=== PATIENT | female | born 1960 | race Two or more races ===

== ENCOUNTER 2017-04-15 19:12 | Emergency (ER) | payer BC ==
[~2017-04-15] VITALS: Ht 162.6 cm; Wt 68.0 kg
--- NOTE | ~2017-04-15 | CR20 ---
[facility] A Service of [facility] & [facility] RADIOLOGY TEXT RESULTS PATIENT: KILLIAN HELMS LOCATION: SED : 58 UNIT #: [id number] AGE: [address]: INDRA TAN SEX: F ORDER DR: [id number] [address] [address] [id number] E MR#: [id number] Acc #: [id number] NAME: KILLIAN HELMS : 1960 SEX: F STUDY DATE/TIME: 04/15/2017 20:07 UNIT: SED ROOM: STUDY DESCRIPTION: CR Ankle Min 3 Views Lt Attending Physician: Indra Tan Ordering Physician: Franck Gautam M.D. Primary Care Physician: Primary Care Physician No MEDICAL IMAGING REPORT This report is preliminary unless electronic signature is present. EXAM Left ankle INDICATION Left ankle pain status post trauma. Rolled the ankle. FINDINGS Three views of the left ankle without comparison. There is lateral soft tissue swelling. There is a nondisplaced vertical fracture through the calcaneus. This extends into the subtalar joint. IMPRESSION Nondisplaced fracture through the calcaneus. Dictated by... Chase Hartley M.D. THIS IS AN ELECTRONICALLY VERIFIED REPORT Chase Hartley M.D. at 04/16/2017 8:56 AM Jorge TD: 04/16/2017 08:19 JOB #: [id number] MEDICAL IMAGING REPORT Page 1 of 1
--- NOTE | ~2017-04-15 | CR126 ---
[facility] A Service of [facility] & [facility] RADIOLOGY TEXT RESULTS PATIENT: KILLIAN HELMS LOCATION: SED : 58 UNIT #: [id number] AGE: [address]: INDRA TAN SEX: F ORDER DR: [id number] [address] [address] [id number] E MR#: [id number] Acc #: [id number] NAME: KILLIAN HELMS : 1960 SEX: F STUDY DATE/TIME: 04/15/2017 20:07 UNIT: SED ROOM: STUDY DESCRIPTION: CR Foot Complete Min 3 View Lt Attending Physician: Indra Tan Ordering Physician: Franck Gautam M.D. Primary Care Physician: Primary Care Physician No MEDICAL IMAGING REPORT This report is preliminary unless electronic signature is present. EXAM Left foot INDICATION Left foot and ankle pain. Pain and swelling. Rolled the ankle. FINDINGS Three views of the left foot without comparison. There is a nondisplaced fracture through the calcaneus. This extends into the subtalar joint. There is no dislocation. IMPRESSION Nondisplaced transverse fracture through the calcaneus. Dictated by... Chase Hartley M.D. THIS IS AN ELECTRONICALLY VERIFIED REPORT Chase Hartley M.D. at 04/16/2017 8:56 AM RAMESH/talia TD: 04/16/2017 08:15 JOB #: [id number] MEDICAL IMAGING REPORT Page 1 of 1
[~2017-04-15 19:12] MED LIST: MINERAL OIL PR; NO MEDICATIONS
[2017-04-15] MEDS ORDERED: IBUPROFEN (19:45)
[2017-04-15] MEDS ORDERED: LANTUS100 U/ML (19:46)
== END 2017-04-15 21:51 | disposition home or self-care (01) ==
LOC: SED 19:12
DX: S92.002A Unspecified fracture of left calcaneus, initial encounter for closed fracture (principal); E11.9 Type 2 diabetes mellitus without complications; F17.210 Nicotine dependence, cigarettes, uncomplicated; Z79.4 Long term (current) use of insulin; X50.1XXA Overexertion from prolonged static or awkward postures, initial encounter; Y92.009 Unspecified place in unspecified non-institutional (private) residence as the place of occurrence of the external cause
CPT/HCPCS: 29515; 73610; 73630; 99283

== ENCOUNTER → 2017-04-19 | Outpatient (CLI) | payer BC ==
[~2017-04-19] MED LIST changes: +IBUPROFEN; +LANTUS100 U/ML
--- NOTE | ~2017-04-19 | CT92 ---
[facility] A Service of [facility] & [facility] RADIOLOGY TEXT RESULTS PATIENT: KILLIAN HELMS LOCATION: [facility] : 58 UNIT #: [id number] AGE: [address]: Tyshawn Solis MD SEX: F ORDER DR: [id number] [address] [address] [id number] O MR#: [id number] Acc #: [id number] NAME: KILLIAN HELMS : 1960 SEX: F STUDY DATE/TIME: 04/19/2017 15:33 UNIT: [facility] ROOM: STUDY DESCRIPTION: CT Lower Ext Lt Wo Cont Attending Physician: Tyshawn Solis M.D. Referring Physician: Tyshawn Solis M.D. Ordering Physician: Tyshawn Solis M.D. Primary Care Physician: No Primary Care Physician MEDICAL IMAGING REPORT This report is preliminary unless electronic signature is present. EXAM CT left foot, without contrast, 04/19/2017. COMPARISON Left ankle and foot radiographs 04/15/2017. HISTORY Order states left calcaneal fracture. History sheets states pain in foot for 5-6 days. Injury 04/12/2017. TECHNIQUE CT left foot with coronal and sagittal reconstructions. This CT exam was performed with one or more of the following radiation dose reduction techniques: automatic exposure control, adjustment of mA and/or kV according to patient size, and iterative reconstruction. FINDINGS There is a comminuted, minimally displaced, intraarticular calcaneal fracture. There is a transverse fracture line through the middle third of the calcaneus. This transverse fracture line is essentially nondisplaced, but does extend cranially through the anterior aspect of the posterior calcaneal facet and medially through the central aspect of the middle facet (sustentaculum talus). There is very slight anteroinferior tilt/depression of the posterior facet articular surface with slight widening of the anterior aspect of the posterior subtalar joint. The anterosuperior process of the calcaneus and the cuboid cortex is intact. There is minimal comminution of the middle third calcaneal medial side cortex. There is trabecular vertically oriented impaction with sclerosis involving the posterior third of the calcaneus. No additional fractures are noted throughout the ankle or foot. Midfoot alignment and tarsal bones are normal. No forefoot fracture is [facility] A Service of [facility] RADIOLOGY TEXT RESULTS PATIENT: KILLIAN HELMS LOCATION: [facility] : 58 UNIT #: [id number] AGE: [address]: Tyshawn Solis MD SEX: F ORDER DR: noted. Soft tissue windows disclose medial and lateral ankle and lower leg subcutaneous edema as well as edema extending along the dorsum of the foot. There is no muscle atrophy. There is no gross tendon pathology or entrapment. There is mild anterior and posterior tibial arterial vascular calcification. There is edema or granulation/thickening in the region of the anterior talofibular ligament. IMPRESSION 1. Comminuted minimally displaced intraarticular calcaneal fracture with middle and posterior facet involvement. Slight anteroinferior tilt/depression of the posterior facet with subsequent widening of the anterior aspect of the posterior subtalar joint. 2. Soft tissue edema. 3. Vascular calcification. 4. No tendon entrapment. 5. Inflammation/granulation/fibrosis in the region of the anterior talofibular ligament, compatible with sequela of prior age indeterminate injury. Dictated by... Elva Gama M.D. THIS IS AN ELECTRONICALLY VERIFIED REPORT Elva Gama M.D. at 04/30/2017 11:32 AM Gurpreet TD: 04/20/2017 13:58 JOB #: [id number] MEDICAL IMAGING REPORT Page 1 of 1
== END | disposition home or self-care (01) ==
LOC: SCT 15:00
DX: S92.062A Displaced intraarticular fracture of left calcaneus, initial encounter for closed fracture (principal); R60.0 Localized edema; M24.275 Disorder of ligament, left foot; I77.89 Other specified disorders of arteries and arterioles
CPT/HCPCS: 73700